=== PATIENT | female | born 1980 | race Caucasian/White ===

== ENCOUNTER 2023-08-13 20:11 | Emergency (ER) | payer OTHER ==
[2023-08-13 20:20] VITALS: PULSE 88; RESP 20; BMI 35.9
[2023-08-13 22:37] LABS: BASO % 0.7 % (0-2.0); EOS % 1.9 % (0-4.5); HEMATOCRIT 31.3 % (32.4-45.2); HEMOGLOBIN 9.9 GM/dL (10.7-15.3); LYMPH % 19.9 % (8-40); MCH 30.2 pg (25.7-33.7); MCHC 31.5 g/dl (32.0-36.0); MEAN CELL VOLUME 95.8 fl (80-96); MEAN PLT VOLUME 7.3 fl (7.5-11.1); MONO % 14.2 % (3.8-10.2); NEUT % 63.3 % (42.8-82.8); PLATELET COUNT 206 10^3/uL (134-434); RBC 3.27 M/mm3 (3.60-5.2); RDW 19.4 % (11.6-15.6); WHITE BLOOD COUNT 6.1 K/mm3 (4.0-10.0)
[2023-08-13] MEDS ORDERED: ACETAMINOPHEN INJECTION 100 ML IVPB ONE (22:43)
[2023-08-13 22:45] LABS: INR 0.98 (0.83-1.09); PROTHROMBIN TIME (PATIENT) 11.4 SEC (9.7-13.0)
[2023-08-13 22:47] LABS: ACTIVATED PTT 27.9 SECONDS (25.2-36.5)
[2023-08-13 22:55] LABS: CHLORIDE 99 mmol/L (98-107); SODIUM 135 mmol/L (136-145)
[2023-08-13] MEDS: LACTATED RINGERS SOLUTION 1000 ML INFUS.BAG IV ONE (22:55)
[2023-08-13] MEDS: ACETAMINOPHEN 1000 MG/100 ML BAG IVPB ONE (22:56)
[2023-08-13 22:57] LABS: ALBUMIN 3.1 g/dl (3.4-5.0); ANION GAP 11 mmol/L (4-13); BLOOD UREA NITROGEN 53.6 mg/dL (7-18); CALCIUM 9.1 mg/dL (8.5-10.1); CO2 25 mmol/L (21-32); GLUCOSE,RANDOM 75 mg/dL (74-106)
[2023-08-13 22:58] LABS: MAGNESIUM 2.7 mg/dL (1.8-2.4)
[2023-08-13 23:00] LABS: SGOT/AST 12 U/L (15-37); SGPT/ALT 15 U/L (13-61)
[2023-08-13 23:02] LABS: BILIRUBIN,TOTAL 0.3 mg/dL (0.2-1); TOT PROT 7.9 g/dl (6.4-8.2)
[2023-08-13 23:03] LABS: ALK PHOS 93 U/L (45-117)
[2023-08-13 23:11] LABS: CREATININE 10.5 mg/dL (0.55-1.3)
[2023-08-13] MEDS ORDERED: SODIUM ZIRCONIUM CYCLOSILICATE (LOKELMA) 5 GM PACKET ONE (23:27)
[2023-08-13 23:41] VITALS: BP 130/76; TEMP 98.1
[2023-08-14] MEDS: SODIUM ZIRCONIUM CYCLOSILICATE (LOKELMA) 5 GM PACKET PO ONE (00:02)
[2023-08-14] MEDS ORDERED: SODIUM ZIRCONIUM CYCLOSILICATE (LOKELMA) 5 GM PACKET PO SCH (10:00)
== END 2023-08-14 00:03 | disposition home or self-care (01) ==
LOC: JER 20:11
PROC: 3E033NZ Introduction of Analgesics, Hypnotics, Sedatives into Peripheral Vein, Percutaneous Approach (ICD-10-PCS; principal; 2023-08-13)
DX: R10.31 Right lower quadrant pain (principal)
CPT/HCPCS: 36415; 80053; 83605; 83690; 83735; 85025; 85610; 85730; 86140; 86850; 86900; 86901; 99284-25; J0131

== ENCOUNTER 2023-09-07 04:20 | Observation (INO) | payer OTHER ==
[2023-09-07 04:33] VITALS: BMI 33.5
[2023-09-07] MEDS ORDERED: ONDANSETRON 4 MG/2 ML VIAL ONE (04:48)
[2023-09-07] MEDS ORDERED: ACETAMINOPHEN INJECTION 100 ML IVPB ONE (04:48)
[2023-09-07] MEDS ORDERED: FAMOTIDINE 20 MG/50 ML IVPB 20 MG/50 ML MG IVPB ONE (04:48)
[2023-09-07] MEDS: FAMOTIDINE 20 MG/50 ML IVPB 20 MG/50 ML MG IVPB ONE (05:08)
[2023-09-07] MEDS: ACETAMINOPHEN 1000 MG/100 ML BAG IVPB ONE (05:08)
[2023-09-07] MEDS: ONDANSETRON 4 MG/2 ML VIAL IVPUSH ONE (05:08)
[2023-09-07 05:28] LABS: CHLORIDE 103 mmol/L (98-107); POTASSIUM 5.2 mmol/L (3.5-5.1); SODIUM 141 mmol/L (136-145)
[2023-09-07 05:30] LABS: CALCIUM 9.3 mg/dL (8.5-10.1)
[2023-09-07 05:31] LABS: ALBUMIN 3.2 g/dl (3.4-5.0); ANION GAP 15 mmol/L (4-13); BLOOD UREA NITROGEN 60.2 mg/dL (7-18); CO2 23 mmol/L (21-32); GLUCOSE,RANDOM 95 mg/dL (74-106); MAGNESIUM 2.3 mg/dL (1.8-2.4)
[2023-09-07 05:34] LABS: SGOT/AST 58 U/L (15-37); SGPT/ALT 44 U/L (13-61)
[2023-09-07 05:35] LABS: BILIRUBIN,TOTAL 0.4 mg/dL (0.2-1); TOT PROT 7.9 g/dl (6.4-8.2)
[2023-09-07 05:37] LABS: ALK PHOS 140 U/L (45-117)
[2023-09-07 05:39] LABS: BASO % 0.5 % (0-2.0); HEMATOCRIT 32.4 % (32.4-45.2); HEMOGLOBIN 10.2 GM/dL (10.7-15.3); LYMPH % 16.1 % (8-40); MCH 30.6 pg (25.7-33.7); MCHC 31.4 g/dl (32.0-36.0); MEAN CELL VOLUME 97.6 fl (80-96); MONO % 7.4 % (3.8-10.2); PLATELET COUNT 318 10^3/uL (134-434); RBC 3.33 M/mm3 (3.60-5.2); RDW 20.3 % (11.6-15.6); WHITE BLOOD COUNT 8.9 K/mm3 (4.0-10.0)
[2023-09-07 06:22] LABS: CREATININE 12.1 mg/dL (0.55-1.3); PHOSPHOROUS 8.7 mg/dL (2.5-4.9)
[2023-09-07] MEDS: PANTOPRAZOLE SODIUM 40 MG VIAL IVPUSH SCH (10:43)
[2023-09-07] MEDS ORDERED: DOCUSATE SODIUM 100 MG CAPSULE (FP) PO PRN (11:06)
[2023-09-07] MEDS ORDERED: LACTULOSE 20 GM/30 ML UDC (FOR ORAL USE ONLY) PO PRN (11:06)
[2023-09-07 11:21] VITALS: RESP 18
[2023-09-07] MEDS: CINACALCET HCL 30 MG TAB (FP) PO SCH ×2 (11:49→11:53)
[2023-09-07] MEDS: MAG HYDROX/AL HYDROX/SIMETH 30 ML UNIT-DOSE CUP PO SCH (11:55)
[2023-09-07] MEDS: ATOVAQUONE 750 MG/5 ML (UNIT-DOSE PACKAGING) PO SCH (12:46)
[2023-09-07] MEDS ORDERED: SODIUM CHLORIDE 250 ML IV PRN (13:04)
[2023-09-07] MEDS ORDERED: SEVELAMER CARBONATE 2.4 GM POWDER PACKET PO SCH (14:00)
[2023-09-07] MEDS: ACETAMINOPHEN 325 MG TABLET (FP) PO PRN (14:47)
[2023-09-07] MEDS: IRON SUCROSE INJECTION 100 MG in SODIUM CHLORIDE 95 ML IVPB ONE (16:57)
[2023-09-07] MEDS ORDERED: SEVELAMER CARBONATE 800 MG TAB (FP) PO SCH (17:30)
[2023-09-07] MEDS: DARUNAVIR/COB/EMTRI/TENOF ALAF 1 EACH TABLET PO SCH (18:23)
[2023-09-07] MEDS: ATORVASTATIN CA 20 MG TABLET (FP) PO SCH (21:39)
[2023-09-07] MEDS: SEVELAMER CARBONATE 2.4 GM POWDER PACKET PO SCH (21:39)
[2023-09-08] MEDS: PIPERACILLIN/TAZOB 2.25 GM 2.25 GM in DEXTROSE 5%-WATER - 50 ML IVPB ONE (01:26)
[2023-09-08] MEDS ORDERED: SODIUM CHLORIDE 250 ML IV PRN (11:17)
[2023-09-08] MEDS ORDERED: LIDOCAINE HCL 5% TOP OINTMENT 50 GM TUBE TP PRN (12:27)
[2023-09-08] MEDS: ACETAMINOPHEN 1000 MG/100 ML BAG IVPB ONE (13:21)
[2023-09-08 15:18] VITALS: BP 133/86; PULSE 85; TEMP 98.1
== END 2023-09-08 15:18 | disposition home or self-care (01) ==
LOC: JER 04:20 → JERBED 08:53 → J5S 09:40
PROVIDERS: ADMIT Internal Medicine; ATTEND Internal Medicine
PROC: 3E033NZ Introduction of Analgesics, Hypnotics, Sedatives into Peripheral Vein, Percutaneous Approach (ICD-10-PCS; principal; 2023-09-07)
PROC: 3E033GC Introduction of Other Therapeutic Substance into Peripheral Vein, Percutaneous Approach (ICD-10-PCS; 2023-09-07)
PROC: 3E03329 Introduction of Other Anti-infective into Peripheral Vein, Percutaneous Approach (ICD-10-PCS; 2023-09-07)
DX: K81.9 Cholecystitis, unspecified (principal); N18.6 End stage renal disease; Z99.2 Dependence on renal dialysis; B20 Human immunodeficiency virus [HIV] disease; G62.9 Polyneuropathy, unspecified
CPT/HCPCS: 36415; 71045-TC-FY; 74177-TC; 76705-TC; 78226-TC; 80053; 83690; 83735; 84100; 84703; 85025; 86704; 86803; 87340; 87517; 93005; 93010; 96365; 96367; 96375; 99285-25; A9537; G0378; J0131; J1756; Q9967

== ENCOUNTER 2023-09-09 13:23 | Inpatient (IN) | payer OTHER ==
[2023-09-09] MEDS ORDERED: ACETAMINOPHEN INJECTION 100 ML IVPB ONE ×2 (15:58→22:37)
[2023-09-09 16:03] LABS: BASO % 0.4 % (0-2.0); EOS % 1.5 % (0-4.5); HEMATOCRIT 31.8 % (32.4-45.2); HEMOGLOBIN 10.1 GM/dL (10.7-15.3); LYMPH % 22.6 % (8-40); MCH 30.7 pg (25.7-33.7); MCHC 31.8 g/dl (32.0-36.0); MEAN CELL VOLUME 96.5 fl (80-96); MEAN PLT VOLUME 6.9 fl (7.5-11.1); MONO % 9.7 % (3.8-10.2); NEUT % 65.8 % (42.8-82.8); PLATELET COUNT 301 10^3/uL (134-434); RBC 3.29 M/mm3 (3.60-5.2); RDW 21.4 % (11.6-15.6); WHITE BLOOD COUNT 6.1 K/mm3 (4.0-10.0)
[2023-09-09 16:11] LABS: INR 1.01 (0.83-1.09); PROTHROMBIN TIME (PATIENT) 11.7 SEC (9.7-13.0)
[2023-09-09 16:14] LABS: ACTIVATED PTT 28.5 SECONDS (25.2-36.5)
[2023-09-09 16:27] LABS: CHLORIDE 97 mmol/L (98-107); POTASSIUM 5.4 mmol/L (3.5-5.1); SODIUM 136 mmol/L (136-145)
[2023-09-09 16:29] LABS: CALCIUM 9.1 mg/dL (8.5-10.1); GLUCOSE,RANDOM 73 mg/dL (74-106)
[2023-09-09 16:30] LABS: ALBUMIN 3.6 g/dl (3.4-5.0); ANION GAP 9 mmol/L (4-13); BLOOD UREA NITROGEN 38.8 mg/dL (7-18); CO2 29 mmol/L (21-32); MAGNESIUM 2.9 mg/dL (1.8-2.4)
[2023-09-09 16:32] LABS: PHOSPHOROUS 6.8 mg/dL (2.5-4.9); SGOT/AST 111 U/L (15-37)
[2023-09-09 16:33] LABS: SGPT/ALT 226 U/L (13-61)
[2023-09-09 16:34] LABS: BILIRUBIN,TOTAL 0.4 mg/dL (0.2-1); TOT PROT 8.5 g/dl (6.4-8.2)
[2023-09-09] MEDS: ACETAMINOPHEN 1000 MG/100 ML BAG IVPB ONE (16:39)
[2023-09-09 16:54] LABS: ANISOCYTOSIS 2+; MACROCYTOSIS 1+
[2023-09-09 16:59] LABS: ALK PHOS 214 U/L (45-117); CREATININE 11.1 mg/dL (0.55-1.3)
[2023-09-09] MEDS ORDERED: SODIUM CHLORIDE 250 ML IV PRN (17:58)
[2023-09-09] MEDS: morphine CARPU-JECT 2 MG/1 ML DISP.SYRIN IVPUSH ONE (18:06)
[2023-09-09] MEDS ORDERED: PIPERACILLIN/TAZOB 3.375 GM 3.375 GM/50 ML BAG IVPB ONE (18:10)
[2023-09-09] MEDS ORDERED: TRIMETHOBENZAMIDE HCL 200MG/2ML INJ IM PRN (20:47)
[2023-09-09] MEDS: PIPERACILLIN/TAZOB 3.375 GM 3.375 GM in DEXTROSE 5%-WATER - 50 ML IVPB ONE (21:50)
[2023-09-09] MEDS ORDERED: ATORVASTATIN CA 20 MG TABLET (FP) ONE (22:36)
[2023-09-09] MEDS ORDERED: HEPARIN NA (PORCINE) 5,000 UNITS/ML 1ML VIAL ONE (22:37)
[2023-09-09] MEDS: ACETAMINOPHEN 1000 MG/100 ML BAG IVPB PRN (22:48)
[2023-09-09] MEDS: ATORVASTATIN CA 20 MG TABLET (FP) PO SCH (22:49)
[2023-09-09] MEDS: HEPARIN NA (PORCINE) 5,000 UNITS/ML 1ML VIAL SQ SCH (22:49)
[2023-09-09] MEDS: SODIUM CHLORIDE 0.9% 500 ML INFUS.BAG IV ONE (22:54)
[2023-09-10] MEDS: PIPERACILLIN/TAZOB 2.25 GM 2.25 GM in DEXTROSE 5%-WATER - 50 ML IVPB SCH ×2 (02:00→17:21)
[2023-09-10] MEDS: DARUNAVIR/COB/EMTRI/TENOF ALAF 1 EACH TABLET PO SCH (07:59)
[2023-09-10] MEDS: SEVELAMER CARBONATE 2.4 GM POWDER PACKET PO SCH (07:59)
[2023-09-10] MEDS: ATOVAQUONE 750 MG/5 ML (UNIT-DOSE PACKAGING) PO SCH (07:59)
[2023-09-10 08:26] LABS: INR 1.05 (0.83-1.09); PROTHROMBIN TIME (PATIENT) 12.2 SEC (9.7-13.0)
[2023-09-10 08:34] LABS: HEMATOCRIT 29.6 % (32.4-45.2); HEMOGLOBIN 9.7 GM/dL (10.7-15.3); MCH 31.6 pg (25.7-33.7); MCHC 32.7 g/dl (32.0-36.0); MEAN CELL VOLUME 96.8 fl (80-96); PLATELET COUNT 244 10^3/uL (134-434); RBC 3.06 M/mm3 (3.60-5.2); RDW 21.7 % (11.6-15.6); WHITE BLOOD COUNT 4.5 K/mm3 (4.0-10.0)
[2023-09-10 08:40] LABS: CHLORIDE 101 mmol/L (98-107); POTASSIUM 5.3 mmol/L (3.5-5.1); SODIUM 139 mmol/L (136-145)
[2023-09-10 08:44] LABS: CALCIUM 8.8 mg/dL (8.5-10.1)
[2023-09-10 08:45] LABS: ALBUMIN 3.2 g/dl (3.4-5.0); ANION GAP 7 mmol/L (4-13); BLOOD UREA NITROGEN 20.7 mg/dL (7-18); CO2 31 mmol/L (21-32); GLUCOSE,RANDOM 70 mg/dL (74-106); MAGNESIUM 2.3 mg/dL (1.8-2.4)
[2023-09-10 08:48] LABS: PHOSPHOROUS 6.2 mg/dL (2.5-4.9); SGOT/AST 267 U/L (15-37); SGPT/ALT 329 U/L (13-61)
[2023-09-10 08:49] LABS: BILIRUBIN,TOTAL 0.7 mg/dL (0.2-1)
[2023-09-10 08:50] LABS: TOT PROT 7.8 g/dl (6.4-8.2)
[2023-09-10 08:54] LABS: ALK PHOS 246 U/L (45-117); CREATININE 8.1 mg/dL (0.55-1.3)
[2023-09-10] MEDS: CINACALCET HCL 30 MG TAB (FP) PO SCH (09:54)
[2023-09-11] MEDS: LIDOCAINE 4% PATCH TP ONE (01:05)
[2023-09-11] MEDS ORDERED: SODIUM CHLORIDE 250 ML IV PRN (08:01)
[2023-09-11] MEDS: EPOETIN ALFA-EPBX 4,000 UNIT/ML VIAL IVPUSH ONE (11:28)
[2023-09-11 19:12] LABS: BASO % 0.9 % (0-2.0); EOS % 1.6 % (0-4.5); HEMATOCRIT 33.6 % (32.4-45.2); HEMOGLOBIN 10.8 GM/dL (10.7-15.3); LYMPH % 17.2 % (8-40); MCH 31.1 pg (25.7-33.7); MEAN PLT VOLUME 6.8 fl (7.5-11.1); MONO % 7.9 % (3.8-10.2); NEUT % 72.4 % (42.8-82.8); PLATELET COUNT 275 10^3/uL (134-434); RBC 3.46 M/mm3 (3.60-5.2); RDW 21.6 % (11.6-15.6); WHITE BLOOD COUNT 5.3 K/mm3 (4.0-10.0)
[2023-09-11 19:32] LABS: POTASSIUM 4.7 mmol/L (3.5-5.1)
[2023-09-11 19:34] LABS: CALCIUM 8.7 mg/dL (8.5-10.1)
[2023-09-11 19:35] LABS: ALBUMIN 3.6 g/dl (3.4-5.0)
[2023-09-11 19:37] LABS: BILIRUBIN,DIRECT 0.3 mg/dL (0.0-0.2)
[2023-09-11 19:38] LABS: CREATININE 5.4 mg/dL (0.55-1.3)
[2023-09-11 19:39] LABS: BILIRUBIN,TOTAL 0.8 mg/dL (0.2-1); TOT PROT 8.7 g/dl (6.4-8.2)
[2023-09-11] MEDS: LIDOCAINE PATCH REMOVAL MC SCH (23:13)
[2023-09-12 09:05] LABS: BASO % 0.5 % (0-2.0); EOS % 2.9 % (0-4.5); HEMATOCRIT 32.8 % (32.4-45.2); HEMOGLOBIN 10.2 GM/dL (10.7-15.3); LYMPH % 24.6 % (8-40); MCH 30.5 pg (25.7-33.7); MEAN CELL VOLUME 98.4 fl (80-96); MEAN PLT VOLUME 7.2 fl (7.5-11.1); MONO % 9.9 % (3.8-10.2); NEUT % 62.1 % (42.8-82.8); PLATELET COUNT 257 10^3/uL (134-434); RBC 3.33 M/mm3 (3.60-5.2); RDW 21.8 % (11.6-15.6); WHITE BLOOD COUNT 3.9 K/mm3 (4.0-10.0)
[2023-09-12 09:23] LABS: CHLORIDE 98 mmol/L (98-107); POTASSIUM 4.8 mmol/L (3.5-5.1); SODIUM 139 mmol/L (136-145)
[2023-09-12 09:26] LABS: CALCIUM 8.5 mg/dL (8.5-10.1)
[2023-09-12 09:27] LABS: ALBUMIN 3.4 g/dl (3.4-5.0); ANION GAP 10 mmol/L (4-13); BLOOD UREA NITROGEN 18.1 mg/dL (7-18); CO2 31 mmol/L (21-32); GLUCOSE,RANDOM 62 mg/dL (74-106)
[2023-09-12 09:28] LABS: MAGNESIUM 2.1 mg/dL (1.8-2.4)
[2023-09-12 09:30] LABS: PHOSPHOROUS 5.2 mg/dL (2.5-4.9); SGOT/AST 112 U/L (15-37); SGPT/ALT 268 U/L (13-61)
[2023-09-12 09:31] LABS: BILIRUBIN,TOTAL 0.7 mg/dL (0.2-1)
[2023-09-12 10:13] LABS: ALK PHOS 210 U/L (45-117); CREATININE 7.6 mg/dL (0.55-1.3)
[2023-09-12] MEDS: AMINO ACIDS 4.25%/D5W 1,000 ML IV SCH ×2 (11:05→14:39)
[2023-09-12] MEDS ORDERED: SODIUM CHLORIDE 250 ML IV PRN ×2 (13:19→13:38)
[2023-09-12] MEDS: INDOMETHACIN 50 MG RECTAL SUPPOSITORY PR ONE (14:40)
[2023-09-12] MEDS ORDERED: FENTANYL CITRATE/PF 50 MCG/ML VIAL ONE (15:11)
[2023-09-12] MEDS: IOHEXOL 300 MG/ML INFUS..BTL IV ONE (15:15)
[2023-09-12] MEDS ORDERED: GLUCAGON 1 MG KIT ONE (15:19)
[2023-09-12] MEDS: ONDANSETRON 4 MG/2 ML VIAL IVPUSH PRN (17:33)
[2023-09-13] MEDS: BUPIVACAINE HCL/PF 0.25% (2.5MG/ML) 10 ML VIAL IJ ONE
[2023-09-13] MEDS ORDERED: BUPIVACAINE HCL/PF 0.25% (2.5MG/ML) 10 ML VIAL ONE (07:19)
[2023-09-13] MEDS ORDERED: INDOCYANINE GREEN 25 MG/10 ML VIAL IVPUSH ONE (07:19)
[2023-09-13] MEDS ORDERED: HEPARIN NA (PORCINE) 5,000 UNITS/ML 1ML VIAL ONE (07:19)
[2023-09-13] MEDS ORDERED: LIDOCAINE HCL/PF 2% SDV 5ML VIAL ONE (07:35)
[2023-09-13] MEDS ORDERED: ROCURONIUM BROMIDE 50 MG/5 ML SYRINGE ONE (07:35)
[2023-09-13] MEDS ORDERED: ONDANSETRON 4 MG/2 ML VIAL ONE (07:35)
[2023-09-13] MEDS ORDERED: DEXAMETHASONE SOD PHOSPHATE 4 MG/1 ML VIAL ONE (07:35)
[2023-09-13] MEDS ORDERED: ePHEDrine SULFATE 50 MG/1 ML AMPULE ONE (07:35)
[2023-09-13] MEDS ORDERED: PROPOFOL 80 ML ONE (07:36)
[2023-09-13] MEDS ORDERED: FENTANYL CITRATE/PF 50 MCG/ML VIAL ONE (07:36)
[2023-09-13] MEDS ORDERED: SUCCINYLCHOLINE CHLORIDE 200 MG/10 ML SYRINGE ONE (07:36)
[2023-09-13] MEDS ORDERED: MIDAZOLAM HCL 2 MG/2 ML SINGLE DOSE VIAL ONE (07:36)
[2023-09-13] MEDS ORDERED: ceFAZolin SODIUM 1 GM VIAL ONE (07:45)
[2023-09-13 08:01] LABS: HEMATOCRIT 32.4 % (32.4-45.2); HEMOGLOBIN 10.1 GM/dL (10.7-15.3); LYMPH % 9.7 % (8-40); MCH 30.3 pg (25.7-33.7); MCHC 31.2 g/dl (32.0-36.0); MEAN CELL VOLUME 97.4 fl (80-96); MEAN PLT VOLUME 7.6 fl (7.5-11.1); MONO % 1.9 % (3.8-10.2); NEUT % 88.4 % (42.8-82.8); PLATELET COUNT 253 10^3/uL (134-434); RBC 3.33 M/mm3 (3.60-5.2); WHITE BLOOD COUNT 6.8 K/mm3 (4.0-10.0)
[2023-09-13 08:22] LABS: CHLORIDE 98 mmol/L (98-107); POTASSIUM 5.9 mmol/L (3.5-5.1); SODIUM 139 mmol/L (136-145)
[2023-09-13 08:24] LABS: ANION GAP 16 mmol/L (4-13); CALCIUM 8.5 mg/dL (8.5-10.1); CO2 24 mmol/L (21-32); MAGNESIUM 2.4 mg/dL (1.8-2.4)
[2023-09-13 08:25] LABS: ALBUMIN 3.3 g/dl (3.4-5.0); BLOOD UREA NITROGEN 39.3 mg/dL (7-18); GLUCOSE,RANDOM 90 mg/dL (74-106)
[2023-09-13 08:27] LABS: SGPT/ALT 206 U/L (13-61)
[2023-09-13 08:28] LABS: BILIRUBIN,DIRECT 0.9 mg/dL (0.0-0.2); PHOSPHOROUS 8.8 mg/dL (2.5-4.9); SGOT/AST 77 U/L (15-37)
[2023-09-13 08:29] LABS: TOT PROT 8.3 g/dl (6.4-8.2)
[2023-09-13 08:30] LABS: ALK PHOS 214 U/L (45-117); BILIRUBIN,TOTAL 1.4 mg/dL (0.2-1)
[2023-09-13 08:35] LABS: AMYLASE > 1300 U/L (25-115); CREATININE 10.3 mg/dL (0.55-1.3)
[2023-09-13 10:43] LABS: ANISOCYTOSIS 2+; MACROCYTOSIS 0; TARGET CELLS 1+
[2023-09-13] MEDS: EPOETIN ALFA-EPBX 4,000 UNIT/ML VIAL SQ ONE (10:57)
[2023-09-13] MEDS: SODIUM CHLORIDE 1,000 ML IV SCH (14:44)
[2023-09-14 10:09] LABS: BASO % 0.3 % (0-2.0); EOS % 0.3 % (0-4.5); HEMATOCRIT 30.8 % (32.4-45.2); HEMOGLOBIN 9.9 GM/dL (10.7-15.3); LYMPH % 18.3 % (8-40); MCH 31.4 pg (25.7-33.7); MCHC 32.1 g/dl (32.0-36.0); MEAN CELL VOLUME 97.6 fl (80-96); MEAN PLT VOLUME 7.9 fl (7.5-11.1); MONO % 5.2 % (3.8-10.2); NEUT % 75.9 % (42.8-82.8); PLATELET COUNT 244 10^3/uL (134-434); RBC 3.15 M/mm3 (3.60-5.2); RDW 21.5 % (11.6-15.6); WHITE BLOOD COUNT 7.7 K/mm3 (4.0-10.0)
[2023-09-14] MEDS: SODIUM CHLORIDE 1,000 ML IV SCH (10:17)
[2023-09-14 10:21] LABS: POTASSIUM 4.1 mmol/L (3.5-5.1)
[2023-09-14 10:27] LABS: CALCIUM 8.9 mg/dL (8.5-10.1)
[2023-09-14 10:28] LABS: ALBUMIN 3.4 g/dl (3.4-5.0); BLOOD UREA NITROGEN 27.9 mg/dL (7-18)
[2023-09-14 10:31] LABS: BILIRUBIN,TOTAL 2.5 mg/dL (0.2-1); CREATININE 7.2 mg/dL (0.55-1.3); TOT PROT 8.2 g/dl (6.4-8.2)
[2023-09-14 10:35] LABS: BILIRUBIN,DIRECT 1.8 mg/dL (0.0-0.2); PHOSPHOROUS 4.4 mg/dL (2.5-4.9)
[2023-09-15] MEDS ORDERED: BUPIVACAINE HCL/PF 0.25% (2.5MG/ML) 10 ML VIAL ONE (07:18)
[2023-09-15] MEDS ORDERED: MIDAZOLAM HCL 2 MG/2 ML SINGLE DOSE VIAL ONE (07:50)
[2023-09-15] MEDS ORDERED: PROPOFOL 20 ML ONE (07:50)
[2023-09-15] MEDS ORDERED: FENTANYL CITRATE/PF 50 MCG/ML VIAL ONE ×5 (07:50→12:57)
[2023-09-15] MEDS ORDERED: ROCURONIUM BROMIDE 50 MG/5 ML SYRINGE ONE (07:52)
[2023-09-15] MEDS ORDERED: ePHEDrine SULFATE 50 MG/1 ML AMPULE ONE (07:52)
[2023-09-15] MEDS ORDERED: PHENYLEPHRINE HCL 10 MG/1 ML SINGLE DOSE VIAL ONE (07:54)
[2023-09-15] MEDS ORDERED: SODIUM CHLORIDE 250 ML IV PRN ×3 (08:00→12:24)
[2023-09-15] MEDS ORDERED: cefOXitin SODIUM 2 GM VIAL (RESTRICTED TO ID) IVPB ONE (08:17)
[2023-09-15] MEDS ORDERED: INDOCYANINE GREEN 25 MG/10 ML VIAL IVPUSH ONE (08:17)
[2023-09-15] MEDS: INDOCYANINE GREEN 25 MG/10 ML VIAL IVPUSH ONE (08:43)
[2023-09-15] MEDS: cefOXitin SODIUM 2 GM VIAL (RESTRICTED TO ID) IVPB ONE (08:53)
[2023-09-15] MEDS: BUPIVACAINE HCL/PF 0.25% (2.5MG/ML) 10 ML VIAL IJ ONE ×2 (09:24)
[2023-09-15] MEDS ORDERED: NEOSTIGMINE METHYLSULFATE 0.5 MG/1 ML - 10 ML MDV ONE (11:21)
[2023-09-15] MEDS ORDERED: GLYCOPYRROLATE 0.2 MG/1 ML VIAL ONE (11:21)
[2023-09-15] MEDS ORDERED: LIDOCAINE HCL 2% 100 MG/5 ML DISP.SYRIN ONE (11:40)
[2023-09-15] MEDS: FENTANYL CITRATE/PF 50 MCG/ML VIAL ONE ×2 (12:12→12:40)
[2023-09-15] MEDS ORDERED: ONDANSETRON 4 MG/2 ML VIAL IVPUSH PRN (12:24)
[2023-09-15] MEDS ORDERED: EPOETIN ALFA-EPBX 4,000 UNIT/ML VIAL SQ ONE (12:24)
[2023-09-15] MEDS ORDERED: ACETAMINOPHEN INJECTION 100 ML IVPB ONE (12:30)
[2023-09-15] MEDS: ACETAMINOPHEN 1000 MG/100 ML BAG IVPB SCH (12:30)
[2023-09-15 14:08] LABS: HEMATOCRIT 25.8 % (32.4-45.2); HEMOGLOBIN 8.2 GM/dL (10.7-15.3); MCH 30.7 pg (25.7-33.7); MCHC 31.7 g/dl (32.0-36.0); MEAN CELL VOLUME 96.9 fl (80-96); MEAN PLT VOLUME 7.9 fl (7.5-11.1); PLATELET COUNT 199 10^3/uL (134-434); RBC 2.66 M/mm3 (3.60-5.2); RDW 21.6 % (11.6-15.6); WHITE BLOOD COUNT 10.8 K/mm3 (4.0-10.0)
[2023-09-15 14:32] LABS: CHLORIDE 102 mmol/L (98-107); POTASSIUM 5.3 mmol/L (3.5-5.1); SODIUM 140 mmol/L (136-145)
[2023-09-15 14:34] LABS: ANION GAP 12 mmol/L (4-13); CALCIUM 7.8 mg/dL (8.5-10.1); CO2 25 mmol/L (21-32); GLUCOSE,RANDOM 115 mg/dL (74-106)
[2023-09-15 14:35] LABS: BLOOD UREA NITROGEN 49.1 mg/dL (7-18)
[2023-09-15 14:38] LABS: CREATININE 10.6 mg/dL (0.55-1.3)
[2023-09-15] MEDS: EPOETIN ALFA-EPBX 4,000 UNIT/ML VIAL SQ ONE (15:04)
[2023-09-15 15:20] LABS: BILIRUBIN,DIRECT 4.7 mg/dL (0.0-0.2); SGPT/ALT 457 U/L (13-61)
[2023-09-15 15:21] LABS: SGOT/AST 471 U/L (15-37)
[2023-09-15 15:22] LABS: TOT PROT 6.8 g/dl (6.4-8.2)
[2023-09-15 15:23] LABS: ALBUMIN 2.7 g/dl (3.4-5.0); ALK PHOS 341 U/L (45-117); BILIRUBIN,TOTAL 5.3 mg/dL (0.2-1)
[2023-09-15] MEDS: PIPERACILLIN/TAZOB 2.25 GM 2.25 GM in DEXTROSE 5%-WATER - 50 ML IVPB SCH (18:16)
[2023-09-15] MEDS: LACTATED RINGERS SOLUTION 1,000 ML IV SCH (18:19)
[2023-09-15] MEDS: SEVELAMER CARBONATE 2.4 GM POWDER PACKET PO SCH (18:31)
[2023-09-15] MEDS: DARUNAVIR/COB/EMTRI/TENOF ALAF 1 EACH TABLET PO SCH (18:52)
[2023-09-15] MEDS: CINACALCET HCL 30 MG TAB (FP) PO SCH (18:53)
[2023-09-15 18:55] LABS: HEMATOCRIT 24.7 % (32.4-45.2); HEMOGLOBIN 7.9 GM/dL (10.7-15.3); MCH 30.8 pg (25.7-33.7); MCHC 32.1 g/dl (32.0-36.0); MEAN CELL VOLUME 96.2 fl (80-96); MEAN PLT VOLUME 7.8 fl (7.5-11.1); PLATELET COUNT 211 10^3/uL (134-434); RBC 2.57 M/mm3 (3.60-5.2); RDW 21.3 % (11.6-15.6); WHITE BLOOD COUNT 8.4 K/mm3 (4.0-10.0)
[2023-09-15 19:14] LABS: POTASSIUM 3.7 mmol/L (3.5-5.1)
[2023-09-15 19:17] LABS: CALCIUM 7.8 mg/dL (8.5-10.1)
[2023-09-15 19:18] LABS: BLOOD UREA NITROGEN 14.5 mg/dL (7-18)
[2023-09-15 19:20] LABS: BILIRUBIN,DIRECT 4.7 mg/dL (0.0-0.2)
[2023-09-15 19:21] LABS: CREATININE 4.4 mg/dL (0.55-1.3)
[2023-09-15 19:22] LABS: TOT PROT 6.6 g/dl (6.4-8.2)
[2023-09-15 19:35] LABS: ALBUMIN 2.6 g/dl (3.4-5.0); BILIRUBIN,TOTAL 5.4 mg/dL (0.2-1)
[2023-09-15] MEDS: ATORVASTATIN CA 20 MG TABLET (FP) PO SCH (21:02)
[2023-09-15] MEDS: LIDOCAINE PATCH REMOVAL MC SCH (21:03)
[2023-09-15 21:07] LABS: ANISOCYTOSIS 2+; MACROCYTOSIS 1+; OVALOCYTE 1+; TARGET CELLS 2+
[2023-09-15 21:14] LABS: PLATELET ESTIMATE ADEQUATE
[2023-09-16] MEDS: oxyCODONE HCL 5 MG TABLET PO PRN (01:29)
[2023-09-16] MEDS: AMINO ACIDS 4.25%/D5W 1,000 ML IV SCH (02:55)
[2023-09-16] MEDS: ATOVAQUONE 750 MG/5 ML (UNIT-DOSE PACKAGING) PO SCH (08:28)
[2023-09-16 09:08] LABS: POTASSIUM 4.4 mmol/L (3.5-5.1)
[2023-09-16 09:12] LABS: HEMATOCRIT 21.1 % (32.4-45.2); LYMPH % 6.7 % (8-40); MCH 31.2 pg (25.7-33.7); MCHC 31.9 g/dl (32.0-36.0); MEAN CELL VOLUME 97.8 fl (80-96); MEAN PLT VOLUME 8.5 fl (7.5-11.1); MONO % 5.7 % (3.8-10.2); NEUT % 87.6 % (42.8-82.8); PLATELET COUNT 194 10^3/uL (134-434); RBC 2.15 M/mm3 (3.60-5.2); RDW 22.3 % (11.6-15.6); WHITE BLOOD COUNT 10.9 K/mm3 (4.0-10.0)
[2023-09-16 09:14] LABS: ALBUMIN 2.3 g/dl (3.4-5.0); BLOOD UREA NITROGEN 37.2 mg/dL (7-18)
[2023-09-16 09:15] LABS: BILIRUBIN,DIRECT 5.1 mg/dL (0.0-0.2)
[2023-09-16 09:16] LABS: ALBUMIN 2.3 g/dl (3.4-5.0)
[2023-09-16 09:16] LABS: CREATININE 6.6 mg/dL (0.55-1.3)
[2023-09-16 09:17] LABS: BILIRUBIN,TOTAL 5.8 mg/dL (0.2-1); TOT PROT 5.7 g/dl (6.4-8.2)
[2023-09-16 09:19] LABS: BILIRUBIN,DIRECT 5.1 mg/dL (0.0-0.2)
[2023-09-16 09:21] LABS: BILIRUBIN,TOTAL 5.8 mg/dL (0.2-1); TOT PROT 5.7 g/dl (6.4-8.2)
[2023-09-16 09:21] LABS: HEMOGLOBIN 6.7 GM/dL (10.7-15.3)
[2023-09-16 10:31] LABS: ANISOCYTOSIS 2+; MACROCYTOSIS 0; OVALOCYTE 1+
[2023-09-16] MEDS ORDERED: SUGAMMADEX SODIUM 200 MG/2 ML VIAL ONE (13:24)
[2023-09-16] MEDS: IOHEXOL 300 MG/ML INFUS..BTL IV ONE (14:28)
[2023-09-16] MEDS ORDERED: ONDANSETRON 4 MG/2 ML VIAL IVPUSH PRN (14:40)
[2023-09-16] MEDS ORDERED: FENTANYL CITRATE/PF 50 MCG/ML VIAL ONE ×3 (14:44→15:03)
[2023-09-16] MEDS: HYDROmorphone HCl 2 MG/ML VIAL IVPUSH ONE (15:18)
[2023-09-16] MEDS ORDERED: HYDROmorphone HCl 2 MG/ML VIAL IVPUSH PRN (15:18)
[2023-09-16 17:10] LABS: HEMATOCRIT 24.1 % (32.4-45.2); HEMOGLOBIN 7.7 GM/dL (10.7-15.3); MCH 30.2 pg (25.7-33.7); MCHC 31.8 g/dl (32.0-36.0); MEAN PLT VOLUME 8.2 fl (7.5-11.1); PLATELET COUNT 232 10^3/uL (134-434); RBC 2.54 M/mm3 (3.60-5.2); RDW 21.7 % (11.6-15.6); WHITE BLOOD COUNT 12.8 K/mm3 (4.0-10.0)
[2023-09-16] MEDS: SODIUM CHLORIDE 1,000 ML IV SCH (19:44)
[2023-09-16 21:02] LABS: MCH 30.3 pg (25.7-33.7); MCHC 32.1 g/dl (32.0-36.0); MEAN CELL VOLUME 94.3 fl (80-96); MEAN PLT VOLUME 8.1 fl (7.5-11.1); PLATELET COUNT 226 10^3/uL (134-434); RBC 2.22 M/mm3 (3.60-5.2); RDW 22.9 % (11.6-15.6); WHITE BLOOD COUNT 11.8 K/mm3 (4.0-10.0)
[2023-09-16 21:10] LABS: HEMOGLOBIN 6.7 GM/dL (10.7-15.3)
[2023-09-16] MEDS: PANTOPRAZOLE SODIUM 40 MG VIAL IVPUSH ONE (22:08)
[2023-09-17 09:54] LABS: BASO % 0.5 % (0-2.0); EOS % 0.1 % (0-4.5); HEMATOCRIT 21.7 % (32.4-45.2); HEMOGLOBIN 7.1 GM/dL (10.7-15.3); LYMPH % 8.7 % (8-40); MCH 30.8 pg (25.7-33.7); MCHC 32.6 g/dl (32.0-36.0); MEAN CELL VOLUME 94.5 fl (80-96); MEAN PLT VOLUME 8.5 fl (7.5-11.1); MONO % 6.4 % (3.8-10.2); NEUT % 84.3 % (42.8-82.8); PLATELET COUNT 205 10^3/uL (134-434); RBC 2.29 M/mm3 (3.60-5.2); RDW 20.8 % (11.6-15.6); WHITE BLOOD COUNT 9.9 K/mm3 (4.0-10.0)
[2023-09-17 10:22] LABS: CHLORIDE 103 mmol/L (98-107); POTASSIUM 4.5 mmol/L (3.5-5.1); SODIUM 142 mmol/L (136-145)
[2023-09-17 10:25] LABS: ALBUMIN 2.2 g/dl (3.4-5.0); ANION GAP 11 mmol/L (4-13); CO2 28 mmol/L (21-32); GLUCOSE,RANDOM 90 mg/dL (74-106); MAGNESIUM 2.2 mg/dL (1.8-2.4)
[2023-09-17 10:28] LABS: PHOSPHOROUS 4.7 mg/dL (2.5-4.9); SGOT/AST 177 U/L (15-37); SGPT/ALT 365 U/L (13-61)
[2023-09-17 10:30] LABS: TOT PROT 5.5 g/dl (6.4-8.2)
[2023-09-17 10:34] LABS: ALK PHOS 237 U/L (45-117); BILIRUBIN,TOTAL 1.3 mg/dL (0.2-1); BLOOD UREA NITROGEN 66.3 mg/dL (7-18); CALCIUM 6.9 mg/dL (8.5-10.1); CREATININE 8.8 mg/dL (0.55-1.3)
[2023-09-17] MEDS: FUROSEMIDE 40 MG/4 ML INJECTABLE VIAL IVPUSH ONE (14:50)
[2023-09-17 17:47] LABS: BASO % 0.4 % (0-2.0); EOS % 0.4 % (0-4.5); HEMATOCRIT 25.8 % (32.4-45.2); HEMOGLOBIN 8.4 GM/dL (10.7-15.3); LYMPH % 12.3 % (8-40); MCH 30.1 pg (25.7-33.7); MCHC 32.5 g/dl (32.0-36.0); MEAN CELL VOLUME 92.8 fl (80-96); MONO % 6.2 % (3.8-10.2); NEUT % 80.7 % (42.8-82.8); PLATELET COUNT 249 10^3/uL (134-434); RBC 2.78 M/mm3 (3.60-5.2); RDW 19.3 % (11.6-15.6); WHITE BLOOD COUNT 12.3 K/mm3 (4.0-10.0)
[2023-09-17 17:52] LABS: INR 1.06 (0.83-1.09); PROTHROMBIN TIME (PATIENT) 12.3 SEC (9.7-13.0)
[2023-09-17 17:55] LABS: ACTIVATED PTT 25.6 SECONDS (25.2-36.5)
[2023-09-18] MEDS ORDERED: SODIUM CHLORIDE 250 ML IV PRN (09:00)
[2023-09-18] MEDS: EPOETIN ALFA-EPBX 10,000 UNIT/ML VIAL IVPUSH ONE (09:27)
[2023-09-18 09:55] LABS: HEMATOCRIT 19.9 % (32.4-45.2); MCH 30.4 pg (25.7-33.7); MEAN CELL VOLUME 92.2 fl (80-96); MEAN PLT VOLUME 8.2 fl (7.5-11.1); PLATELET COUNT 235 10^3/uL (134-434); RBC 2.16 M/mm3 (3.60-5.2); RDW 19.2 % (11.6-15.6); WHITE BLOOD COUNT 11.2 K/mm3 (4.0-10.0)
[2023-09-18 09:58] LABS: HEMOGLOBIN 6.6 GM/dL (10.7-15.3)
[2023-09-18 10:04] LABS: CHLORIDE 100 mmol/L (98-107); POTASSIUM 4.1 mmol/L (3.5-5.1); SODIUM 134 mmol/L (136-145)
[2023-09-18 10:08] LABS: ALBUMIN 2.2 g/dl (3.4-5.0); ANION GAP 9 mmol/L (4-13); CO2 26 mmol/L (21-32); GLUCOSE,RANDOM 92 mg/dL (74-106)
[2023-09-18 10:11] LABS: PHOSPHOROUS 4.3 mg/dL (2.5-4.9); SGOT/AST 67 U/L (15-37); SGPT/ALT 248 U/L (13-61)
[2023-09-18 10:12] LABS: BILIRUBIN,TOTAL 0.9 mg/dL (0.2-1); TOT PROT 5.5 g/dl (6.4-8.2)
[2023-09-18 10:14] LABS: ALK PHOS 193 U/L (45-117); BLOOD UREA NITROGEN 101.7 mg/dL (7-18); CALCIUM 6.7 mg/dL (8.5-10.1); CREATININE 11.1 mg/dL (0.55-1.3)
[2023-09-18] MEDS: PANTOPRAZOLE SODIUM 40 MG VIAL IVPUSH SCH ×2 (12:54→21:35)
[2023-09-18] MEDS: ACETAMINOPHEN 1000 MG/100 ML BAG IVPB ONE (15:54)
[2023-09-18 19:06] LABS: BASO % 0.5 % (0-2.0); EOS % 1.4 % (0-4.5); HEMATOCRIT 27.4 % (32.4-45.2); HEMOGLOBIN 9.2 GM/dL (10.7-15.3); LYMPH % 13.6 % (8-40); MCH 30.4 pg (25.7-33.7); MCHC 33.5 g/dl (32.0-36.0); MEAN CELL VOLUME 90.7 fl (80-96); MEAN PLT VOLUME 8.1 fl (7.5-11.1); MONO % 8.6 % (3.8-10.2); NEUT % 75.9 % (42.8-82.8); PLATELET COUNT 241 10^3/uL (134-434); RBC 3.02 M/mm3 (3.60-5.2); RDW 16.3 % (11.6-15.6); WHITE BLOOD COUNT 11.9 K/mm3 (4.0-10.0)
[2023-09-19 09:59] LABS: BASO % 0.6 % (0-2.0); HEMATOCRIT 23.8 % (32.4-45.2); HEMOGLOBIN 7.9 GM/dL (10.7-15.3); LYMPH % 14.4 % (8-40); MCH 30.6 pg (25.7-33.7); MCHC 33.4 g/dl (32.0-36.0); MEAN CELL VOLUME 91.6 fl (80-96); MEAN PLT VOLUME 8.2 fl (7.5-11.1); MONO % 7.8 % (3.8-10.2); NEUT % 75.2 % (42.8-82.8); PLATELET COUNT 266 10^3/uL (134-434); RBC 2.59 M/mm3 (3.60-5.2); RDW 17.5 % (11.6-15.6)
[2023-09-19 10:03] LABS: INR 1.06 (0.83-1.09); PROTHROMBIN TIME (PATIENT) 12.3 SEC (9.7-13.0)
[2023-09-19 10:40] LABS: CREATININE 7.1 mg/dL (0.55-1.3)
[2023-09-19 10:56] LABS: BLOOD UREA NITROGEN 54.2 mg/dL (7-18); CALCIUM 7.8 mg/dL (8.5-10.1)
[2023-09-19] MEDS: ACETAMINOPHEN 1000 MG/100 ML BAG IVPB ONE (13:57)
[2023-09-19 14:06] LABS: ALBUMIN 2.6 g/dl (3.4-5.0); BILIRUBIN,TOTAL 0.8 mg/dL (0.2-1); TOT PROT 6.2 g/dl (6.4-8.2)
[2023-09-19 14:08] LABS: BILIRUBIN,DIRECT 0.6 mg/dL (0.0-0.2)
[2023-09-19] MEDS: SIMETHICONE 80 MG TAB.CHEW (FP) PO PRN (17:17)
[2023-09-19 20:25] VITALS: RESP 18
[2023-09-19] MEDS: PANTOPRAZOLE 40 MG TABLET PO ONE (22:51)
[2023-09-20] MEDS ORDERED: SODIUM CHLORIDE 250 ML IV PRN (08:35)
[2023-09-20] MEDS: EPOETIN ALFA-EPBX 10,000 UNIT, EPOETIN ALFA-EPBX 2,000 UNIT SQ ONE (09:40)
[2023-09-20 09:47] LABS: HEMATOCRIT 19.4 % (32.4-45.2); MCH 31.4 pg (25.7-33.7); MCHC 33.9 g/dl (32.0-36.0); MEAN CELL VOLUME 92.7 fl (80-96); MEAN PLT VOLUME 8.1 fl (7.5-11.1); PLATELET COUNT 213 10^3/uL (134-434); RBC 2.09 M/mm3 (3.60-5.2); RDW 17.9 % (11.6-15.6); WHITE BLOOD COUNT 6.8 K/mm3 (4.0-10.0)
[2023-09-20 09:56] LABS: HEMOGLOBIN 6.6 GM/dL (10.7-15.3)
[2023-09-20 10:02] LABS: CHLORIDE 101 mmol/L (98-107); POTASSIUM 3.8 mmol/L (3.5-5.1); SODIUM 139 mmol/L (136-145)
[2023-09-20 10:07] LABS: ALBUMIN 2.2 g/dl (3.4-5.0); BLOOD UREA NITROGEN 69.6 mg/dL (7-18); GLUCOSE,RANDOM 88 mg/dL (74-106)
[2023-09-20 10:09] LABS: SGOT/AST 47 U/L (15-37); SGPT/ALT 134 U/L (13-61)
[2023-09-20 10:10] LABS: BILIRUBIN,TOTAL 0.8 mg/dL (0.2-1); TOT PROT 5.4 g/dl (6.4-8.2)
[2023-09-20 10:20] LABS: ALK PHOS 136 U/L (45-117); ANION GAP 11 mmol/L (4-13); CALCIUM 7.8 mg/dL (8.5-10.1); CO2 27 mmol/L (21-32); CREATININE 9.2 mg/dL (0.55-1.3)
[2023-09-20] MEDS ORDERED: EPOETIN ALFA-EPBX 10,000 UNIT/ML VIAL SQ ONE (14:10)
[2023-09-20 19:32] LABS: BASO % 0.6 % (0-2.0); EOS % 2.2 % (0-4.5); HEMATOCRIT 24.2 % (32.4-45.2); HEMOGLOBIN 8.2 GM/dL (10.7-15.3); LYMPH % 14.2 % (8-40); MCH 31.3 pg (25.7-33.7); MCHC 33.8 g/dl (32.0-36.0); MEAN CELL VOLUME 92.6 fl (80-96); MONO % 8.9 % (3.8-10.2); NEUT % 74.1 % (42.8-82.8); PLATELET COUNT 206 10^3/uL (134-434); RBC 2.62 M/mm3 (3.60-5.2); RDW 16.5 % (11.6-15.6); WHITE BLOOD COUNT 6.4 K/mm3 (4.0-10.0)
[2023-09-20] MEDS: ACETAMINOPHEN 325 MG TABLET (FP) PO ONE (22:24)
[2023-09-20] MEDS: PANTOPRAZOLE 40 MG TABLET PO SCH (22:25)
[2023-09-21 08:08] LABS: HEMATOCRIT 24.5 % (32.4-45.2); HEMOGLOBIN 8.1 GM/dL (10.7-15.3); MCH 31.1 pg (25.7-33.7); MCHC 33.3 g/dl (32.0-36.0); MEAN CELL VOLUME 93.4 fl (80-96); MEAN PLT VOLUME 7.9 fl (7.5-11.1); PLATELET COUNT 229 10^3/uL (134-434); RBC 2.62 M/mm3 (3.60-5.2); WHITE BLOOD COUNT 5.2 K/mm3 (4.0-10.0)
[2023-09-21 08:22] LABS: POTASSIUM 3.6 mmol/L (3.5-5.1)
[2023-09-21 08:25] LABS: CALCIUM 7.5 mg/dL (8.5-10.1)
[2023-09-21 08:26] LABS: ALBUMIN 2.4 g/dl (3.4-5.0)
[2023-09-21 08:30] LABS: BILIRUBIN,DIRECT 0.4 mg/dL (0.0-0.2); CREATININE 6.6 mg/dL (0.55-1.3)
[2023-09-21 08:31] LABS: BILIRUBIN,TOTAL 0.7 mg/dL (0.2-1); TOT PROT 5.6 g/dl (6.4-8.2)
[2023-09-21 08:34] LABS: BLOOD UREA NITROGEN 26.9 mg/dL (7-18)
[2023-09-21] MEDS: CYCLOBENZAPRINE HCL 10 MG TABLET (FP) PO ONE (11:11)
[2023-09-21] MEDS: FAMOTIDINE 20 MG/50 ML IVPB 20 MG/50 ML MG IVPB ONE (11:51)
[2023-09-21] MEDS ORDERED: SODIUM CHLORIDE 250 ML IV PRN (17:15)
[2023-09-21] MEDS ORDERED: CYCLOBENZAPRINE HCL 10 MG TABLET (FP) PO PRN (18:42)
[2023-09-21 21:46] LABS: BASO % 0.8 % (0-2.0); EOS % 2.7 % (0-4.5); HEMATOCRIT 23.8 % (32.4-45.2); LYMPH % 13.8 % (8-40); MCH 31.6 pg (25.7-33.7); MCHC 33.8 g/dl (32.0-36.0); MEAN CELL VOLUME 93.6 fl (80-96); MEAN PLT VOLUME 7.6 fl (7.5-11.1); NEUT % 71.7 % (42.8-82.8); PLATELET COUNT 244 10^3/uL (134-434); RBC 2.55 M/mm3 (3.60-5.2); RDW 17.9 % (11.6-15.6); WHITE BLOOD COUNT 5.1 K/mm3 (4.0-10.0)
[2023-09-22] MEDS: ACETAMINOPHEN 325 MG TABLET (FP) PO PRN (00:12)
[2023-09-22 10:04] LABS: HEMATOCRIT 22.7 % (32.4-45.2); HEMOGLOBIN 7.8 GM/dL (10.7-15.3); MCH 31.9 pg (25.7-33.7); MCHC 34.2 g/dl (32.0-36.0); MEAN CELL VOLUME 93.1 fl (80-96); MEAN PLT VOLUME 7.7 fl (7.5-11.1); PLATELET COUNT 261 10^3/uL (134-434); RBC 2.44 M/mm3 (3.60-5.2); RDW 17.2 % (11.6-15.6); WHITE BLOOD COUNT 4.5 K/mm3 (4.0-10.0)
[2023-09-22 10:12] LABS: CHLORIDE 99 mmol/L (98-107); POTASSIUM 3.4 mmol/L (3.5-5.1); SODIUM 135 mmol/L (136-145)
[2023-09-22 10:36] LABS: ALK PHOS 132 U/L (45-117)
[2023-09-22 10:42] LABS: ALBUMIN 2.3 g/dl (3.4-5.0); ANION GAP 7 mmol/L (4-13); CALCIUM 7.2 mg/dL (8.5-10.1); CO2 30 mmol/L (21-32); GLUCOSE,RANDOM 85 mg/dL (74-106)
[2023-09-22 10:45] LABS: BILIRUBIN,DIRECT 0.4 mg/dL (0.0-0.2); SGPT/ALT 80 U/L (13-61)
[2023-09-22 10:46] LABS: SGOT/AST 27 U/L (15-37)
[2023-09-22 10:47] LABS: BILIRUBIN,TOTAL 0.7 mg/dL (0.2-1); TOT PROT 5.5 g/dl (6.4-8.2)
[2023-09-22 10:58] LABS: CREATININE 9.2 mg/dL (0.55-1.3)
[2023-09-22 14:14] LABS: HEMATOCRIT 30.3 % (32.4-45.2); HEMOGLOBIN 10.2 GM/dL (10.7-15.3); MCH 31.1 pg (25.7-33.7); MCHC 33.8 g/dl (32.0-36.0); MEAN PLT VOLUME 7.6 fl (7.5-11.1); PLATELET COUNT 328 10^3/uL (134-434); RBC 3.29 M/mm3 (3.60-5.2); RDW 17.1 % (11.6-15.6); WHITE BLOOD COUNT 6.8 K/mm3 (4.0-10.0)
[2023-09-22 14:24] VITALS: BP 133/69; PULSE 110; TEMP 98.3
[2023-09-22 23:38] VITALS: BMI 34.7
== END 2023-09-22 17:02 | disposition home or self-care (01) | DRG 263 ==
LOC: JER 13:23 → JERBED 17:44 → J6S 23:02
PROVIDERS: ADMIT Internal Medicine; ATTEND Internal Medicine
PROC: 0F798ZZ Dilation of Common Bile Duct, Via Natural or Artificial Opening Endoscopic (ICD-10-PCS; 2023-09-12)
PROC: 30233N1 Transfusion of Nonautologous Red Blood Cells into Peripheral Vein, Percutaneous Approach (ICD-10-PCS; 2023-09-14)
PROC: 8E0W4CZ Robotic Assisted Procedure of Trunk Region, Percutaneous Endoscopic Approach (ICD-10-PCS; 2023-09-15)
PROC: 0FT44ZZ Resection of Gallbladder, Percutaneous Endoscopic Approach (ICD-10-PCS; principal; 2023-09-15 08:00)
PROC: 0FC98ZZ Extirpation of Matter from Common Bile Duct, Via Natural or Artificial Opening Endoscopic (ICD-10-PCS; 2023-09-16)
PROC: 0F798DZ Dilation of Common Bile Duct with Intraluminal Device, Via Natural or Artificial Opening Endoscopic (ICD-10-PCS; 2023-09-16)
PROC: 0DJ08ZZ Inspection of Upper Intestinal Tract, Via Natural or Artificial Opening Endoscopic (ICD-10-PCS; 2023-09-19)
PROC: 5A1D70Z Performance of Urinary Filtration, Intermittent, Less than 6 Hours Per Day (ICD-10-PCS; 2023-09-22)
DX: K80.00 Calculus of gallbladder with acute cholecystitis without obstruction (principal); B20 Human immunodeficiency virus [HIV] disease; I12.0 Hypertensive chronic kidney disease with stage 5 chronic kidney disease or end stage renal disease; K85.90 Acute pancreatitis without necrosis or infection, unspecified; N18.6 End stage renal disease; D62 Acute posthemorrhagic anemia; K91.841 Postprocedural hemorrhage of a digestive system organ or structure following other procedure; K91.89 Other postprocedural complications and disorders of digestive system; E83.39 Other disorders of phosphorus metabolism; E87.5 Hyperkalemia; K92.2 Gastrointestinal hemorrhage, unspecified; R17 Unspecified jaundice; Y83.9 Surgical procedure, unspecified as the cause of abnormal reaction of the patient, or of later complication, without mention of misadventure at the time of the procedure; E66.9 Obesity, unspecified; Z99.2 Dependence on renal dialysis; E78.5 Hyperlipidemia, unspecified; R74.01 Elevation of levels of liver transaminase levels; Z68.38 Body mass index [BMI] 38.0-38.9, adult
CPT/HCPCS: 36415; 36430; 71045-TC-FY; 74018-TC-FY; 74150-TC; 74181-TC; 76000-TC-FY; 76705-TC; 80048; 80053; 80076; 82150; 82248; 82272; 82728; 82962; 83540; 83550; 83605; 83690; 83735; 84100; 84466; 84484; 84703; 85025; 85027; 85610; 85730; 86850; 86900; 86901; 86922; 87040; 88304-TC; 93005; 93010; 94760; 99285-25; J0131; J1644; P9038; P9058; Q5106

== ENCOUNTER 2023-10-26 04:31 | Day surgery (SDC) | payer OTHER ==
[2023-10-23 13:58] VITALS: BMI 35.5
[2023-10-26] MEDS: IOHEXOL 300 MG/ML INFUS..BTL IV ONE (13:50)
[2023-10-26 14:15] VITALS: RESP 18; TEMP 97.4
[2023-10-26 15:49] VITALS: PULSE 86
[2023-10-26 16:36] VITALS: BP 111/63
== END 2023-10-26 16:42 | disposition home or self-care (01) ==
LOC: JASU-ENDO 04:31
PROVIDERS: ATTEND Internal Medicine Gastroenterology
PROC: 0F798ZZ Dilation of Common Bile Duct, Via Natural or Artificial Opening Endoscopic (ICD-10-PCS; 2023-10-26)
PROC: 0FPB8DZ Removal of Intraluminal Device from Hepatobiliary Duct, Via Natural or Artificial Opening Endoscopic (ICD-10-PCS; principal; 2023-10-26 13:00)
DX: K80.20 Calculus of gallbladder without cholecystitis without obstruction (principal)
CPT/HCPCS: 74330-TC; 87070; 87186